=== PATIENT | male | born 1950 | race Caucasian/White ===

== ENCOUNTER 2018-10-29 08:49 | Emergency (ER) | payer MEDICARE, BC ==
--- NOTE | 2018-10-29 09:16 | EDM.PDOC ---
ED HPI GENERAL MEDICAL PROBLEM - General Chief Complaint: General Stated Complaint: WEAKNESS & LOW HEMOGLOBIN [id number] Time Seen by Provider: 10/29/18 09:15 Source of Information: Reports: Patient, Family, Old Records, RN, RN Notes Reviewed History Limitations: Reports: No Limitations - History of Present Illness INITIAL COMMENTS - FREE TEXT/NARRATIVE: Pt with Hx of hepatocellular carcinoma presents to ER stating that his oncologist, Dr. Irais Alegre from [facility] called him yesterday to inform him that his Hgb was 5.4 and he needed to go to the ER for a transfusion. Pt states he feels about at his baseline with fatigue & mild chronic diarrhea which has been attributed to his oral chemo, but no other symptoms. He denies shortness of breath, fevers, N/V, bloody, black, tarry, or melanotic stools. He sustained a very large hematoma with bruising from the left buttock to the foot about a week ago, but he doesn't know what he did to cause it. He is not on any blood thinners other than Aspirin 81mg daily. Onset: Unknown/Unsure Location: Reports: Generalized Severity: Moderate Improves with: Reports: None Worsens with: Reports: None Associated Symptoms: Reports: No Other Symptoms - Related Data Allergies Allergy/AdvReac Type Severity Reaction Status Date / Time No Known Allergies Allergy Verified 10/29/18 09:33 Home Meds: Home Meds Aspirin [Ecotrin] 81 mg PO DAILY 05/08/14 [History] Carvedilol 25 mg PO BID 05/08/14 [History] Multivitamin [Multi-Vitamin Daily] 1 each PO DAILY 05/08/14 [History] Calcium Carbonate/Vitamin D3 [Calcium 500 + Vit D 200 Tablet] 1 each PO DAILY [History] Diphenoxylate HCl/Atropine [Lomotil] 1 tab PO Q6H PRN 05/10/18 [History] Finasteride 5 mg PO DAILY 05/10/18 [History] Lisinopril 20 mg PO DAILY 05/10/18 [History] Loperamide HCl [Imodium A-D] 2 mg PO QID PRN 05/10/18 [History] Omeprazole 20 mg PO BIDAC 05/10/18 [History] Ondansetron [Zofran ODT] 4 mg PO Q6H PRN 05/10/18 [History] Patient's Own Medication [Ptom] 2 each PO BIDAC 05/10/18 [History] Potassium Chloride [Klor-Con M20] 20 meq PO BID 05/10/18 [History] Magnesium Oxide [Magnesium] 400 mg PO BID 09/16/18 [History] Past Medical History HEENT History: Reports: None Cardiovascular History: Reports: None Respiratory History: Reports: None Gastrointestinal History: Reports: Chronic Constipation, Chronic Diarrhea Genitourinary History: Reports: BPH Musculoskeletal History: Reports: None Neurological History: Reports: None Psychiatric History: Reports: None Endocrine/Metabolic History: Reports: None Hematologic History: Reports: None Immunologic History: Reports: None Oncologic (Cancer) History: Reports: Liver Dermatologic History: Reports: None - Infectious Disease History Infectious Disease History: Reports: None - Past Surgical History HEENT Surgical History: Reports: None Cardiovascular Surgical History: Reports: None Respiratory Surgical History: Reports: None GI Surgical History: Reports: Cholecystectomy, Colonoscopy Male Surgical History: Reports: None Endocrine Surgical History: Reports: None Neurological Surgical History: Reports: None Musculoskeletal Surgical History: Reports: None Oncologic Surgical History: Reports: None Dermatological Surgical History: Reports: None Social & Family History - Family History Family Medical History: Noncontributory - Caffeine Use Caffeine Use: Reports: Coffee - Living Situation & Occupation Living situation: Reports: , with Spouse Occupation: Retired ED ROS GENERAL - Review of Systems Review Of Systems: ROS reveals no pertinent complaints other than HPI. ED EXAM, GENERAL - Physical Exam Exam: See Below Exam Limited By: No Limitations General Appearance: Alert, No Apparent Distress, Other (Chronically ill appearing) Eye Exam: Bilateral Eye: EOMI, PERRL Ears: Hearing Grossly Normal Nose: Normal Inspection, Normal Mucosa, No Blood Throat/Mouth: Normal Inspection, Normal Lips, Normal Teeth, Normal Gums, Normal Oropharynx, Normal Voice, No Airway Compromise Head: Atraumatic, Normocephalic Neck: Normal Inspection, Supple, Non-Tender, Full Range of Motion Respiratory/Chest: No Respiratory Distress, Lungs Clear, Normal Breath Sounds, No Accessory Muscle Use, Chest Non-Tender Cardiovascular: Normal Peripheral Pulses, Regular Rate, Rhythm, No Edema GI/Abdominal: Normal Bowel Sounds, Soft, Non-Tender, No Distention, No Abnormal Bruit (Male) Exam: Deferred Rectal (Males) Exam: Deferred Back Exam: Normal Inspection, Full Range of Motion, NT Extremities: Normal Inspection, Normal Range of Motion, Non-Tender, Normal Capillary Refill, No Pedal Edema Neurological: Alert, Oriented, CN II-XII Intact, Normal Cognition, No Motor/ Sensory Deficits Psychiatric: Normal Affect, Normal Mood Skin Exam: Warm, Dry, Intact, No Rash, Pallor Course - Vital Signs Last Recorded V/S: Last Vital Signs Temp 36.9 C 10/29/18 14:15 Pulse 81 10/29/18 14:15 Resp 16 10/29/18 14:15 BP 155/53 H 10/29/18 14:15 Pulse Ox 99 10/29/18 12:16 - Orders/Labs/Meds Orders: Active Orders 24 hr Category Date Time Status Verify Patient Consent Obtain [RC] ASDIRECTED Care 10/29/18 09:57 Active Late Tray [DIET] Routine Diet 10/29/18 10:09 Active Sodium Chloride 0.9% [Saline Flush] Med 10/29/18 09:54 Active 10 ml FLUSH ASDIRECTED PRN Transfuse PRBC [Transfuse Red Blood Cells] [COMM] Stat Oth 10/29/18 09:54 Ordered Transfuse Red Blood Cells [COMM] Stat Oth 10/29/18 09:54 Ordered Medication Orders Sodium Chloride (Saline Flush) 10 ml FLUSH ASDIRECTED PRN PRN Reason: Keep Vein Open Last Admin: 10/29/18 10:39 Dose: 10 ml Pt to med. floor for extended ER for transfusion with plan to d/c home if no further issues arise. Labs: Laboratory Tests 10/29/18 10/29/18 10/29/18 Range/Units 09:11 09:11 09:11 WBC 6.9 (5.0-10.0) 10^3/uL RBC 2.08 L (4.6-6.2) 10^6/uL Hgb 6.9 L D (14.0-18.0) g/dL Hct 22.9 L (40.0-54.0) % MCV 110.1 H D (80-100) fL MCH 33.2 (27.0-34.0) pg MCHC 30.1 L (33.0-35.0) g/dL Plt Count 495 H (150-450) 10^3/uL Neut % (Auto) 58.9 (42.2-75.2) % Lymph % (Auto) 24.1 (20.5-50.1) % [place] % (Auto) 13.1 H (2-8) % Eos % (Auto) 2.9 (1.0-3.0) % Baso % (Auto) 1.0 (0.0-1.0) % Add Manual Diff Yes Neutrophils % (Manual) 64 (42-75) % Lymphocytes % (Manual) 25 (20-50) % Monocytes % (Manual) 8 (2-8) % Eosinophils % (Manual) 3 (1-3) % Nucleated RBCs 2 /100WBC Hypochromasia 2+ moderate Macrocytosis 1+ slight Sodium 136 (135-145) mmol/L Potassium 4.1 (3.6-5.0) mmol/L Chloride 107 (101-111) mmol/L Carbon Dioxide 19.0 L (21.0-31.0) mmol/L Anion Gap 14.1 BUN 18 (7-18) mg/dL Creatinine 0.7 (0.6-1.3) mg/dL Est Cr Clr Drug Dosing 105.43 mL/min Estimated GFR (MDRD) > 60 BUN/Creatinine Ratio 25.71 Glucose 91 (74-105) mg/dL Calcium 7.7 L (8.4-10.2) mg/dl Magnesium 2.1 (1.8-2.5) mg/dL Total Bilirubin 1.2 H (0.2-1.0) mg/dL AST 318 H (10-42) IU/L ALT 171 H (10-60) IU/L Alkaline Phosphatase 118 (42-121) IU/L Total Protein 5.2 L (6.7-8.2) g/dl Albumin 2.3 L (3.2-5.5) g/dl Globulin 2.9 Albumin/Globulin Ratio 0.79 Blood Type O POSITIVE Gel Antibody Screen Negative Crossmatch See Detail Meds: Medications Generic Name Dose Route Start Last Admin Trade Name Freq PRN Reason Stop Dose Admin Sodium Chloride 10 ml 10/29/18 09:54 10/29/18 10:39 Saline Flush FLUSH 10 ml ASDIRECTED PRN Administration Keep Vein Open Discontinued Medications Generic Name Dose Route Start Last Admin Trade Name Freq PRN Reason Stop Dose Admin Dexamethasone 4 mg 10/29/18 09:54 10/29/18 10:38 Dexamethasone IVPUSH 10/29/18 09:55 4 mg ONETIME ONE Administration Diphenhydramine HCl 25 mg 10/29/18 09:54 10/29/18 10:38 Benadryl IV 10/29/18 09:55 25 mg ONETIME ONE Administration Furosemide 20 mg 10/29/18 09:54 10/29/18 10:38 Lasix IVPUSH 10/29/18 09:55 20 mg NOW ONE Administration - Re-Assessments/Exams Free Text/Narrative Re-Assessment/Exam: 10/29/18 09:[address] Irais Briscoe via [employer]. He advises transfusion of 1 unit PRBCs, hold daily Aspirin 81mg, and he will f/u with the pt later in the week for recheck. Departure - Departure Time of Disposition: 14:55 Disposition: Home, Self-Care 01 Condition: Fair Clinical Impression: Anemia due to blood loss, acute, Hepatocellular carcinoma determined by biopsy of liver - Discharge Information *PRESCRIPTION DRUG MONITORING PROGRAM REVIEWED*: Not Applicable *COPY OF PRESCRIPTION DRUG MONITORING REPORT IN PATIENT BRY: Not Applicable Forms: ED Department Discharge Additional Instructions: Discontinue Aspirin 81mg until you discuss with Dr. Briscoe. Follow up with Dr. Briscoe within the next 1 week. Return to ER if you develop worsening fatigue, shortness of breath, chest pain, bloody or black/dark stool. - My Orders Last 24 Hours: My Active Orders 10/29/18 09:54 Sodium Chloride 0.9% [Saline Flush] 10 ml FLUSH ASDIRECTED PRN Transfuse PRBC [Transfuse Red Blood Cells] [COMM] Stat Transfuse Red Blood Cells [COMM] Stat 10/29/18 09:57 Verify Patient Consent Obtain [RC] ASDIRECTED 10/29/18 10:09 Late Tray [DIET] Routine - Assessment/Plan Last 24 Hours: My Active Orders 10/29/18 09:54 Sodium Chloride 0.9% [Saline Flush] 10 ml FLUSH ASDIRECTED PRN Transfuse PRBC [Transfuse Red Blood Cells] [COMM] Stat Transfuse Red Blood Cells [COMM] Stat 10/29/18 09:57 Verify Patient Consent Obtain [RC] ASDIRECTED 10/29/18 10:09 Late Tray [DIET] Routine
[2018-10-29 09:38] LABS: ANION GAP 14.1; CHLORIDE,CL 107 mmol/L (101-111); SODIUM,NA 136 mmol/L (135-145)
[2018-10-29] MEDS ORDERED: diphenhydrAMINE 50 MG/ML SDV IV ONE (09:54)
[2018-10-29] MEDS ORDERED: Furosemide 40 MG/4 ML VIAL IVPUSH ONE (09:54)
[2018-10-29] MEDS ORDERED: Sodium Chloride 0.9% 10 ML Syringe FLUSH PRN (09:54)
[2018-10-29] MEDS ORDERED: Dexamethasone 4 MG/ML SDV IVPUSH ONE (09:54)
[2018-10-29 16:16] VITALS: BP 128/62
== END 2018-10-29 16:00 | disposition home or self-care (01) ==
LOC: DL.ED 08:49
DX: D62 Acute posthemorrhagic anemia (principal); C22.0 Liver cell carcinoma; Z79.82 Long term (current) use of aspirin; Z79.899 Other long term (current) drug therapy
CPT/HCPCS: 36415; 36430; 80053; 83735; 85025; 86850; 86900; 86901; 86920; 86922; 96374; 96375; 99284; J1100; J1200; J1940; P9016